=== PATIENT | female | born 1985 | race Caucasian/White ===

== ENCOUNTER 2018-07-16 15:15 | Inpatient (IN) | payer OTHER ==
[~2018-07-16] VITALS: Ht 157.5 cm; Wt 74.4 kg
[2018-07-16] MEDS ORDERED: PRENATABS FA T1 EACH PO (16:02)
[2018-07-16] MEDS ORDERED: INTEGRA PLUS C1 EACH PO (16:38)
== END 2018-08-04 10:18 | disposition home or self-care (01) | DRG 788 ==
LOC: RECOVERY 08-01 07:00 → OB/GYN 08-01 07:09 → O/R 08-01 07:09 → OB/GYN 08-01 12:22 → RECOVERY 08-01 15:15 → OB/GYN 08-04 10:18
PROVIDERS: ADMIT Obstetrics & Gynecology
PROC: 4A1HXCZ Monitoring of Products of Conception, Cardiac Rate, External Approach (ICD-10-PCS; 2018-08-01)
PROC: 10D00Z1 Extraction of Products of Conception, Low, Open Approach (ICD-10-PCS; principal; 2018-08-01 07:00)
DX: O82 Encounter for cesarean delivery without indication (principal); O34.211 Maternal care for low transverse scar from previous cesarean delivery; O75.82 Onset (spontaneous) of labor after 37 completed weeks of gestation but before 39 completed weeks gestation, with delivery by (planned) cesarean section; Z3A.39 39 weeks gestation of pregnancy; Z37.0 Single live birth; Z22.330 Carrier of Group B streptococcus

== ENCOUNTER 2021-12-10 10:26 | Emergency (ER) | payer OTHER ==
[~2021-12-10] VITALS: Ht 157.5 cm; Wt 70.3 kg
[~2021-12-10 10:26] MED LIST: INTEGRA PLUS C1 EACH PO; PRENATABS FA T1 EACH PO
== END 2021-12-10 15:15 | disposition home or self-care (01) ==
LOC: ER 10:26
DX: S30.0XXA Contusion of lower back and pelvis, initial encounter (principal); W18.39XA Other fall on same level, initial encounter; Y93.89 Activity, other specified; Y92.018 Other place in single-family (private) house as the place of occurrence of the external cause; Y99.9 Unspecified external cause status; R07.81 Pleurodynia

== ENCOUNTER 2025-03-14 07:52 | Emergency (ER) | payer OTHER ==
[~2025-03-14] VITALS: Ht 157.5 cm; Wt 71.7 kg
[2025-03-14] MEDS ORDERED: TAMSULOSIN HCL 0.4 MG CAP PO ONE ×2 (08:45→09:14)
[2025-03-14] MEDS ORDERED: KETOROLAC TROMETHAMINE 60 MG VIAL IM ONE ×2 (08:45→09:14)
[2025-03-14] MEDS ORDERED: CEFTRIAXONE SODIUM 1,000 MG VIAL IM ONE (08:45)
[2025-03-14] MEDS ORDERED: CEFTRIAXONE SODIUM 1,000 MG VIAL ONE (09:15)
[2025-03-14 10:18] LABS: BASO % 0.1 % (0.1-1.2); EOS # 0.01 (0.04-0.54); EOS % 0.1 % (0.7-7.0); LYMPH # 0.90 (1.18-3.74); LYMPH % 7.2 % (19.3-53.1); MEAN PLATELET VOLUME 10.60 fl (9.4-12.4); MONO # 0.38 (0.24-0.82); MONO % 3.1 % (4.7-12.5); NEUT # 11.11 (1.56-6.13); NEUT % 89.2 % (34.0-71.1); RED CELL DISTRIBUTION WIDTH 13.8 % (11.6-14.4)
[2025-03-14 10:52] LABS: URINE APPEARANCE Clear; URINE BILIRRUBIN Negative (NEGATIVE); URINE BLOOD Trace; URINE COLOR Yellow; URINE GLUCOSE Negative (NEGATIVE); URINE KETONE Negative (NEGATIVE); URINE LEUKOCYTE Trace; URINE NITRATE Negative; URINE PROTEIN Negative (NEGATIVE); URINE UROBILINOGEN 0.2 E.U./dl
[2025-03-14 10:55] LABS: URINE BACTERIA 46.7 uL (0.0-1933); URINE EPITHELIAL CELLS 3.5 uL (0.0-38.8); URINE RBC 7.7 uL (0.0-20.8); URINE WBC 13.5 uL (0.0-23.2)
[2025-03-14 11:20] LABS: ALT/SGPT 19 U/L (12-78); AST/SGOT 14 U/L (15-37); BILIRUBIN TOTAL 0.39 mg/dL (0.3-1.2); BUN CREA RATIO 17 (7.0-25.0); CREATININE SERUM 0.66 mg/dL (0.55-1.02); GFR 99.70; GLOBULINA 3.5 G/DL (2.4-3.5); GLUCOSE FASTING 96 mg/dL (65-100); OSMOLALITY SERUM 281 MOSM/KG (275-295)
[2025-03-14 11:22] LABS: HCG QUANTITATIVE < 1 mUI/mL (1-3)
[2025-03-14 11:25] LABS: URINE CAST 0.14 uL (0.0-1.40)
[2025-03-14] MEDS ORDERED: TAMS0.4C PO (12:47)
[2025-03-14] MEDS ORDERED: PEPCID AC20 MG PO (12:47)
[2025-03-14] MEDS ORDERED: NORFLEX100MG PO (12:47)
[2025-03-14] MEDS ORDERED: ZOFRAN8 MG PO (12:47)
[2025-03-14] MEDS ORDERED: BACTRIM DS TAB1 EACH PO (12:47)
== END 2025-03-14 13:23 | disposition home or self-care (01) ==
LOC: ER 07:53
PROVIDERS: General Practice
DX: R30.0 Dysuria (principal); N20.2 Calculus of kidney with calculus of ureter